=== PATIENT | female | born 1945 ===

== ENCOUNTER 2022-12-22 08:11 | Day surgery (SDC) | payer OTHER ==
[~2022-12-22] VITALS: Ht 160 cm; Wt 59.9 kg
[~2022-12-22 08:11] MED LIST: ACID REDUCER20 M1 PO; ATORVASTATIN CA20 MG PO; GLUMETZA500 MG; TOPROL XL25 M1 PO; XELPROS2.5 ML OP; ZESTRIL10 M1 PO
== END 2022-12-22 18:15 | disposition home or self-care (01) ==
LOC: CIR.AMB 08:11
PROVIDERS: ATTEND Colon & Rectal Surgery
DX: K62.89 Other specified diseases of anus and rectum (principal); K62.0 Anal polyp; K62.1 Rectal polyp; Z20.822 Contact with and (suspected) exposure to COVID-19; K64.8 Other hemorrhoids; I10 Essential (primary) hypertension; E11.9 Type 2 diabetes mellitus without complications; Z79.84 Long term (current) use of oral hypoglycemic drugs